=== PATIENT | male | born 1960 | race Caucasian/White ===

== ENCOUNTER 2019-08-06 18:07 | Emergency (ER) | payer OTHER ==
[~2019-08-06] VITALS: Ht 177.8 cm; Wt 147.4 kg
[2019-08-06] MEDS ORDERED: JANUMET 50-5001 EACH PO (18:33)
[2019-08-06] MEDS ORDERED: CARVEDILOL3.125 M1 (18:33)
[2019-08-06] MEDS ORDERED: LASIX20 MG PO (18:33)
[2019-08-06] MEDS ORDERED: AMLODIPINE-VAL1 EAC3 PO (18:33)
[2019-08-06] MEDS ORDERED: ELIQUIS5 MG PO (18:34)
[2019-08-06] MEDS ORDERED: FINASTERIDE5 MG PO (18:34)
[2019-08-06] MEDS ORDERED: METFORMIN HCL1000 M3 PO (18:34)
[2019-08-06] MEDS ORDERED: GLIMEPIRIDE4 M1 PO (18:34)
[2019-08-06] MEDS ORDERED: TAMSULOSIN HCL0.4 MG PO (18:34)
[2019-08-06] MEDS ORDERED: OMEPRAZOLE40 MG PO (18:34)
[2019-08-06] MEDS ORDERED: MAXIMUM D3325 MCG PO (18:35)
[2019-08-07] MEDS ORDERED: METOLAZONE5 MG PO (17:03)
== END 2019-08-07 17:54 | disposition home or self-care (01) ==
LOC: ER 18:07
DX: I89.0 Lymphedema, not elsewhere classified (principal); R60.0 Localized edema; R31.29 Other microscopic hematuria; N40.0 Benign prostatic hyperplasia without lower urinary tract symptoms; N43.2 Other hydrocele; N50.3 Cyst of epididymis; I86.1 Scrotal varices; J90 Pleural effusion, not elsewhere classified; I87.2 Venous insufficiency (chronic) (peripheral); I73.9 Peripheral vascular disease, unspecified

== ENCOUNTER 2019-08-10 15:07 | Emergency (ER) | payer OTHER ==
[~2019-08-10] VITALS: Ht 175.3 cm; Wt 156.5 kg
[~2019-08-10 15:07] MED LIST: AMLODIPINE-VAL1 EAC3 PO; CARVEDILOL3.125 M1; ELIQUIS5 MG PO; FINASTERIDE5 MG PO; GLIMEPIRIDE4 M1 PO; JANUMET 50-5001 EACH PO; LASIX20 MG PO; MAXIMUM D3325 MCG PO; METFORMIN HCL1000 M3 PO; METOLAZONE5 MG PO; OMEPRAZOLE40 MG PO; TAMSULOSIN HCL0.4 MG PO
== END 2019-08-10 22:54 | disposition home or self-care (01) ==
LOC: ER 15:07
DX: N39.0 Urinary tract infection, site not specified (principal); N41.8 Other inflammatory diseases of prostate; I10 Essential (primary) hypertension